=== PATIENT | male | born 1980 | race Caucasian/White ===

== ENCOUNTER 2016-05-17 20:54 | Emergency (ER) | payer MEDICAID ==
--- NOTE | 2016-05-17 21:39 | EDM.PDOC ---
ED HPI ENT - General Chief Complaint: ENT Problem Stated Complaint: JAW INJURY Time Seen by Provider: 05/17/16 21:35 Source of Information: Reports: Patient History Limitations: Reports: No limitations - History of Present Illness INITIAL COMMENTS - FREE TEXT/NARRATIVE: Patient presents for evaluation and treatment of tooth pain and swelling and redness to the right cheek. Patient reports that the symptoms have been going on for about 6 weeks. He was seen in our ER about one month ago. He was placed on penicillin and instructed to followup with dental. He states that he followed up with his dentist on May 01. He was prescribed amoxicillin 3 times a day for 10 days and tramadol for the pain. [place] the tramadol did not help much with the pain. The amoxicillin seemed to help with the pain and swelling more than penicillin did. He states he took the antibiotics to completion. He reports that the pain to the right side has steadily been increasing again. He reports associated symptoms of headaches. He denies any fevers, chills, nausea, vomiting, earaches, sore throat or lymphadenopathy. He states on May 23 he is scheduled to have 3 teeth pulled by the dentist. - Related Data Allergies/ADRs: Allergies Allergy/AdvReac Type Severity Reaction Status Date / Time No Known Allergies Allergy Verified 05/17/16 21:07 Home Meds: Home Meds Penicillin V Potassium [IJD: Penicillin V Potassium] 500 mg PO .EVERY 6 HOURS # 40 tab 04/18/16 [Rx] Acetaminophen/oxyCODONE [Percocet 325-5 MG] 1 tab PO Q6H PRN #20 tablet [Rx] Amoxicillin [IJP: Amoxicillin] 500 mg PO .THREE TIMES DAILY #30 cap 05/17/16 [Rx ] Past Medical History - Past Health History Medical/Surgical History: Denies Medical/Surgical History Musculoskeletal History: Reports: Fracture, Other (see below) Other Musculoskeletal History: fractured wrist Neurological History: Reports: Other (see below) Other Neuro History: headaches from tooth - Past Surgical History Male Surgical History: Reports: Vasectomy Social & Family History - Tobacco Use Smoking Status *Q: Former Smoker - Caffeine Use Caffeine Use: Reports: Coffee - Recreational Drug Use Recreational Drug Use: No ED ROS ENT - Review of Systems Review Of Systems: See Below Constitutional: Denies: fever, chills HEENT: Reports: Dental pain (right upper molars), Other (swelling and erythma to the right cheek). Denies: Ear pain GI/Abdominal: Denies: Nausea, Vomiting ED EXAM, ENT - Physical Exam Exam: See Below Exam Limited By: No limitations General Appearance: alert, WD/WN, no apparent distress Eye Exam: bilateral eye: PERRL Ears: normal external exam, normal canal, hearing grossly normal, normal TMs Nose: normal inspection Mouth/Throat: Normal inspection, Normal gums, Normal lips, Dental abcess (right upper #2), Dental pain (#2), Dental tenderness (#2), Other (multiple missing teeth; multiple carries present) Neck: lymphadenopathy (L), lymphadenopathy (R) Respiratory/Chest: no respiratory distress, lungs clear, normal breath sounds Cardiovascular: normal peripheral pulses, regular rate, rhythm, no murmur Neurological: alert, oriented, normal cognition Psychiatric: normal affect, normal mood Skin: Warm, Dry, Normal color, Erythema (inferior to the right zygomatic arch) Course - Vital Signs Last Recorded V/S: Last Vital Signs Temp 36.8 C 05/17/16 21:07 Pulse 93 05/17/16 21:07 Resp 16 05/17/16 21:07 BP 122/73 05/17/16 21:07 Pulse Ox 97 05/17/16 21:07 Departure - Departure Time of Disposition: 21:35 Disposition: Home, Self-Care 01 Condition: fair Clinical Impression: Dental abscess, Pain, dental, Dental infection Prescriptions: Acetaminophen/oxyCODONE [Percocet 325-5 MG] 1 tab PO Q6H PRN #20 tablet PRN Reason: Pain Amoxicillin [IJP: Amoxicillin] 500 mg PO .THREE TIMES DAILY #30 cap Instructions: Dental Abscess, [id number] Referrals: PCP,None [Primary Care Provider] - Forms: ED Department Discharge Additional Instructions: take The amoxicillin as prescribed one tab 3 times a day for 10 days. [id number] ibuprofen as needed for pain. He may take Percocet as needed for severe pain. 1-2 tabs every 4-6 hours as needed. Do not drive or operate machinery within 12 hours of taking the Percocet. Percocet can be habit-forming , take as few of these as needed to control your pain. Follow up with your dentist as planned. Please return to the ER should your symptoms change or worsen.
== END 2016-05-17 21:49 | disposition home or self-care (01) ==
LOC: JD.ED 20:54
CPT/HCPCS: 99283

== ENCOUNTER 2017-08-23 12:08 | Emergency (ER) | payer MEDICAID ==
[2017-08-23 12:23] VITALS: BP 118/78
--- NOTE | 2017-08-23 12:44 | EDM.PDOC ---
ED HPI GENERAL MEDICAL PROBLEM - General Chief Complaint: Chest Pain Stated Complaint: CHEST PAIN Time Seen by Provider: 08/23/17 12:30 Source of Information: Reports: Patient History Limitations: Reports: No Limitations - History of Present Illness INITIAL COMMENTS - FREE TEXT/NARRATIVE: Burak is a 36yo male presents ambulatory to ED today with complaints of 3-4 months of intermittent mid substernal chest pain, "pressure and feels compressed ". Pain is intermittent, occurring daily, 2 to 3 times daily, lasting hours to minutes. Sleep seems to make it better. He has tried ibuprofen without relief but does not worsen the pain. He does not get heart burn. Denies pain into his back. Pain bothers him more at work. 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 He notices less episodes of chest pain while at work. He has noted a "few times" of racing heart beats, unsure if it has been during activity/lifting. No PMH. NDKA. Nonsmoker, smoked for 15 years "when I was younger", quit 10 years ago, smoked 1ppd, 2ppd when drinking alcohol. No family hx of CAD or other heart problems. He has lower back discomfort "from working". Works for [employer]. Duration: Chronic (3-4 months) Location: Reports: Chest Quality: Reports: Pressure Improves with: Reports: None Worsens with: Reports: None Context: Reports: Other (unknown) Associated Symptoms: Reports: Chest Pain. Denies: Cough, Fever/Chills, Headaches, Nausea/Vomiting, Shortness of Breath, Syncope, Weakness Bilateral Chest Pain Score (Numeric/FACES): 5 - Related Data Allergies Allergy/AdvReac Type Severity Reaction Status Date / Time No Known Allergies Allergy Verified 05/17/16 21:07 Home Meds: Home Meds . [No Known Home Meds] 08/23/17 [History] Past Medical History - Past Health History Medical/Surgical History: Denies Medical/Surgical History Musculoskeletal History: Reports: Fracture, Other (See Below) Other Musculoskeletal History: fractured wrist Neurological History: Reports: Other (See Below) Other Neuro History: headaches from tooth - Past Surgical History GI Surgical History: Reports: Hernia, Inguinal Male Surgical History: Reports: Vasectomy Social & Family History - Tobacco Use Smoking Status *Q: Never Smoker - Caffeine Use Caffeine Use: Reports: Coffee - Recreational Drug Use Recreational Drug Use: No ED ROS GENERAL - Review of Systems Review Of Systems: See Below Constitutional: Reports: No Symptoms HEENT: Reports: Sinus Problem (chornic sinus congestion and runny nose "sniffles ") Respiratory: Reports: No Symptoms. Denies: Shortness of Breath, Wheezing, Cough Cardiovascular: Reports: Chest Pain, Lightheadedness ("maybe twice" but not usually), Palpitations. Denies: Blood Pressure Problem, Dyspnea on Exertion, Edema Endocrine: Reports: No Symptoms GI/Abdominal: Reports: No Symptoms : Reports: No Symptoms Musculoskeletal: Reports: No Symptoms Skin: Reports: No Symptoms Neurological: Reports: No Symptoms. Denies: Headache, Numbness, Syncope, Tingling Psychiatric: Reports: Other ("more stress than usual lately") ED EXAM, GENERAL - Physical Exam Exam: See Below Exam Limited By: No Limitations General Appearance: Alert, WD/WN, No Apparent Distress Eye Exam: Bilateral Eye: EOMI, PERRL Ears: Normal External Exam, Hearing Grossly Normal Nose: Normal Inspection Throat/Mouth: Normal Inspection, Normal Lips, Normal Teeth, Normal Gums, Normal Voice, No Airway Compromise Head: Atraumatic, Normocephalic Neck: Normal Inspection, Supple Respiratory/Chest: No Respiratory Distress, Lungs Clear, Chest Non-Tender Cardiovascular: Normal Peripheral Pulses, Regular Rate, Rhythm, No Edema, No Murmur Peripheral Pulses: 2+: Radial (L), Radial (R) GI/Abdominal: Normal Bowel Sounds, Soft (Male) Exam: Deferred Rectal (Males) Exam: Deferred Back Exam: Normal Inspection Extremities: Normal Inspection, Normal Range of Motion, Pedal Edema Neurological: Alert, Oriented, CN II-XII Intact, Normal Cognition Psychiatric: Normal Affect, Normal Mood Skin Exam: Warm, Dry, Intact EKG INTERPRETATION EKG Date: 08/23/17 Time: 13:34 Rhythm: NSR Rate (Beats/Min): 78 Comparison: NA - No Prior EKG EKG Interpretation Comments: Reviewed with Dr. Salas Course - Vital Signs Last Recorded V/S: Last Vital Signs Temp 98.5 F 08/23/17 12:19 Pulse 86 08/23/17 12:19 Resp 19 08/23/17 12:19 BP 118/78 08/23/17 12:19 Pulse Ox 99 08/23/17 12:19 - Orders/Labs/Meds Orders: Active Orders 24 hr Category Date Time Status EKG Documentation Completion [RC] STAT Care 08/23/17 12:49 Active Labs: Laboratory Tests 08/23/17 08/23/17 Range/Units 14:10 14:10 WBC 6.68 (4.23-9.07) K/mm3 RBC 5.15 (4.63-6.08) M/mm3 Hgb 15.0 (13.7-17.5) gm/L Hct 45.2 (40.1-51.0) % MCV 87.8 (79.0-92.2) fl MCH 29.1 (25.7-32.2) pg MCHC 33.2 (32.2-35.5) g/dl RDW Std Deviation 42.5 (35.1-43.9) fL Plt Count 238 (163-337) K/mm3 MPV 8.2 L (9.4-12.3) fl Neut % (Auto) 47.3 (34.0-67.9) % Lymph % (Auto) 39.1 (21.8-53.1) % Johnson % (Auto) 10.6 (5.3-12.2) % Eos % (Auto) 2.4 (0.8-7.0) Baso % (Auto) 0.3 (0.1-1.2) % Neut # (Auto) 3.16 (1.78-5.38) K/mm3 Lymph # (Auto) 2.61 (1.32-3.57) K/mm3 Johnson # (Auto) 0.71 (0.30-0.82) K/mm3 Eos # (Auto) 0.16 (0.04-0.54) K/mm3 Baso # (Auto) 0.02 (0.01-0.08) K/mm3 Sodium 140 (136-145) mEq/L Potassium 3.9 (3.5-5.1) mEq/L Chloride 104 (98-107) mEq/L Carbon Dioxide 27 (21-32) mEq/L Anion Gap 12.9 (5-15) BUN 13 (7-18) mg/dL Creatinine 0.8 (0.7-1.3) mg/dL Est Cr Clr Drug Dosing 142.81 mL/min Estimated GFR (MDRD) > 60 (>60) mL/min BUN/Creatinine Ratio 16.3 (14-18) Glucose 92 (74-106) mg/dL Calcium 8.8 (8.5-10.1) mg/dL Total Bilirubin 0.4 (0.2-1.0) mg/dL AST 30 (15-37) U/L ALT 40 (16-63) U/L Alkaline Phosphatase 67 (46-116) U/L Troponin I < 0.017 (0.00-0.056) ng/mL Total Protein 7.0 (6.4-8.2) g/dl Albumin 3.8 (3.4-5.0) g/dl Globulin 3.2 gm/dL Albumin/Globulin Ratio 1.2 (1-2) TSH 3rd Generation 1.153 (0.358-3.74) uIU/mL - Radiology Interpretation Free Text/Narrative:: 2 view CXR unremarkable; radiologist read is with nothing acute seen on 2 view chest xray Departure - Departure Time of Disposition: 15:02 Disposition: Home, Self-Care 01 Condition: Good Clinical Impression: Atypical chest pain Instructions: Nonspecific Chest Pain Referrals: Shane Perez Jr, MD [Primary Care Provider] - Forms: ED Department Discharge Additional Instructions: Your labs today are all normal including blood count, hemoglobin for anemia, electrolytes, kidney function, troponin which is an enzyme released from the heart if damaged is normal, TSH for thyroid function study is normal, chest xray is normal, EKG or tracing of heart rhythm is normal. All of your testing is normal today which is reassuring that you have not had a heart attack or any lung issues going on. Recommend minimize caffeine, push fluids/water/powerade or similar product when at work. Follow up with your Primary Care Provider, Dr. Perez within 7-10 days for follow up and further evaluation. You can return to the ED if needed for worsening of chest pain or other questions or concerns. - My Orders Last 24 Hours: My Active Orders 08/23/17 12:49 EKG Documentation Completion [RC] STAT - Assessment/Plan Last 24 Hours: My Active Orders 08/23/17 12:49 EKG Documentation Completion [RC] STAT
--- NOTE | 2017-08-23 13:34 | CR ---
Chest: Two views of the chest were obtained. Comparison: No prior chest x-ray. Heart size and mediastinum are normal. Lungs are clear without acute parenchymal change. Bony structures appear within normal limits. Impression: 1. Nothing acute is seen on two-view chest x-ray. Diagnostic code #1
== END 2017-08-23 15:15 | disposition home or self-care (01) ==
LOC: JD.ED 12:08
DX: R07.2 Precordial pain (principal)
CPT/HCPCS: 36415; 71046; 71046-26; 80053; 84443; 84484; 85025; 93010; 99284; 99285-25